=== PATIENT | female | born 1935 | race Caucasian/White ===

== ENCOUNTER 2020-12-14 14:28 | Inpatient (IN) | payer BC ==
[2020-12-14 14:52] VITALS: BMI 33.8
[2020-12-14] MEDS ORDERED: DEXAMETHASONE SOD PHOSPHATE 4 MG/1 ML VIAL IVPUSH ONE (16:15)
[2020-12-14] MEDS ORDERED: DEXAMETHASONE SOD PHOSPHATE 10 MG/1 ML VIAL ONE (17:02)
[2020-12-14 17:54] LABS: BASO % 0.7 % (0-2.0); EOS % 0.1 % (0-4.5); LYMPH % 4.6 % (8-40); MCH 25.7 pg (25.7-33.7); MCHC 32.3 g/dl (32.0-36.0); MEAN CELL VOLUME 79.5 fl (80-96); MEAN PLT VOLUME 9.4 fl (7.5-11.1); MONO % 4.1 % (3.8-10.2); NEUT % 90.5 % (42.8-82.8); PLATELET COUNT 290 K/MM3 (134-434); RBC 4.28 M/mm3 (3.60-5.2); RDW 15.8 % (11.6-15.6); WHITE BLOOD COUNT 16.3 K/mm3 (4.0-10.0)
[2020-12-14] MEDS ORDERED: VANCOMYCIN 1,250 MG in DEXTROSE 5%-WATER - 250 ML IVPB ONE (18:04)
[2020-12-14] MEDS ORDERED: DOXYCYCLINE INJECTION 100 MG in DEXTROSE 5%-WATER - 100 ML IVPB ONE (18:04)
[2020-12-14 18:15] LABS: POTASSIUM 3.8 mmol/L (3.5-5.1)
[2020-12-14 18:17] LABS: BLOOD UREA NITROGEN 72.1 mg/dL (7-18); CALCIUM 8.5 mg/dL (8.5-10.1)
[2020-12-14 18:21] LABS: CREATININE 1.9 mg/dL (0.55-1.3)
[2020-12-14 18:22] LABS: BILIRUBIN,TOTAL 0.5 mg/dL (0.2-1); TOT PROT 6.9 g/dl (6.4-8.2)
[2020-12-14 18:36] LABS: N-TERMINAL BNP 8722.2 pg/ml (5-450)
[2020-12-14] MEDS ORDERED: DEXTROSE 50%-WATER 25 GM/50 ML DISP.SYRIN ONE (18:38)
[2020-12-14] MEDS ORDERED: HEPARIN NA (PORCINE) 5,000 UNITS/ML 1ML VIAL IVPUSH PRN (18:42)
[2020-12-14] MEDS ORDERED: HEPARIN NA (PORCINE) 5,000 UNITS/ML 1ML VIAL IVPUSH ONE (18:43)
[2020-12-14] MEDS ORDERED: ASPIRIN 81 MG CHEWABLE TABLETS PO ONE (18:44)
[2020-12-14] MEDS ORDERED: CLOPIDOGREL BISULFATE 300 MG TABLET PO ONE (18:44)
[2020-12-14] MEDS ORDERED: ATORVASTATIN CA 80 MG TABLET (FP) PO ONE (18:45)
[2020-12-14] MEDS ORDERED: DEXTROSE 50%-WATER - 25 GM/50 ML VIAL IVPUSH ONE (18:46)
[2020-12-14] MEDS ORDERED: FUROSEMIDE 40 MG/4 ML INJECTABLE VIAL IVPUSH ONE (18:49)
[2020-12-14 18:56] LABS: INR 1.03 (0.83-1.09); PROTHROMBIN TIME (PATIENT) 12.5 SEC (9.7-13.0)
[2020-12-14 18:59] LABS: ACTIVATED PTT 27.3 SECONDS (25.2-36.5)
[2020-12-14] MEDS ORDERED: ASPIRIN 81 MG CHEWABLE TABLETS ONE (19:03)
[2020-12-14] MEDS ORDERED: ATORVASTATIN CA 80 MG TABLET (FP) ONE ×2 (19:04→21:59)
[2020-12-14] MEDS ORDERED: CLOPIDOGREL BISULFATE 300 MG TABLET ONE (19:04)
[2020-12-14] MEDS ORDERED: FUROSEMIDE 40 MG/4 ML INJECTABLE VIAL ONE (19:05)
[2020-12-14] MEDS ORDERED: HEPARIN NA (PORCINE) 5,000 UNITS/ML 1ML VIAL ONE (19:06)
[2020-12-14] MEDS ORDERED: ENOXAPARIN NA (PORCINE) 80 MG/0.8 ML DISP.SYRIN SQ SCH (20:00)
[2020-12-14] MEDS: HEPARIN - 25,000 UNIT in SODIUM CHLORIDE 495 ML IV SCH (20:09)
[2020-12-14] MEDS ORDERED: SODIUM CHLORIDE 1,000 ML IV SCH (20:45)
[2020-12-14] MEDS ORDERED: ASCORBIC ACID 500 MG TABLET (FP) ONE (21:58)
[2020-12-14] MEDS ORDERED: ZINC SULFATE 220 MG CAPSULE (FP) ONE (21:59)
[2020-12-14] MEDS: ASCORBIC ACID 500 MG TABLET (FP) PO SCH (22:11)
[2020-12-14] MEDS: ZINC SULFATE 220 MG CAPSULE (FP) PO SCH (22:11)
[2020-12-14] MEDS: ATORVASTATIN CA 80 MG TABLET (FP) PO SCH (22:11)
[2020-12-15 02:34] LABS: URINE APPEARANCE Clear; URINE BILIRUBIN Negative (NEGATIVE); URINE COLOR Yellow; URINE GLUCOSE (UA) Negative (NEGATIVE); URINE KETONE Negative (NEGATIVE); URINE LEUK ESTERASE 3+ (NEGATIVE); URINE NITRITE Negative (NEGATIVE); URINE PROTEIN 2+ (NEGATIVE); URINE UROBILINOGEN 0.2 mg/dL (0.2-1.0)
[2020-12-15] MEDS ORDERED: HEPARIN NA (PORCINE) 5,000 UNITS/ML 1ML VIAL ONE (05:30)
[2020-12-15] MEDS: HEPARIN NA (PORCINE) 5,000 UNITS/ML 1ML VIAL IVPUSH PRN (05:34)
[2020-12-15] MEDS: DOXYCYCLINE INJECTION 100 MG in DEXTROSE 5%-WATER - 100 ML IVPB SCH ×2 (06:13→19:08)
[2020-12-15] MEDS ORDERED: DOXYCYCLINE HYCLATE 100 MG VIAL ONE ×2 (06:15→18:56)
[2020-12-15 08:08] LABS: BASO % 0.2 % (0-2.0); HEMATOCRIT 33.2 % (32.4-45.2); HEMOGLOBIN 10.9 GM/dL (10.7-15.3); LYMPH % 5.1 % (8-40); MCH 26.1 pg (25.7-33.7); MCHC 32.8 g/dl (32.0-36.0); MEAN CELL VOLUME 79.4 fl (80-96); MEAN PLT VOLUME 9.4 fl (7.5-11.1); MONO % 2.1 % (3.8-10.2); NEUT % 92.6 % (42.8-82.8); PLATELET COUNT 258 K/MM3 (134-434); RBC 4.18 M/mm3 (3.60-5.2); RDW 15.4 % (11.6-15.6); WHITE BLOOD COUNT 9.2 K/mm3 (4.0-10.0)
[2020-12-15 09:32] LABS: BLOOD UREA NITROGEN 73.6 mg/dL (7-18); CALCIUM 8.2 mg/dL (8.5-10.1); CREATININE 1.6 mg/dL (0.55-1.3); POTASSIUM 3.7 mmol/L (3.5-5.1)
[2020-12-15] MEDS ORDERED: ASCORBIC ACID 500 MG TABLET (FP) ONE (09:46)
[2020-12-15] MEDS ORDERED: CEFTRIAXONE 1 GM/50 ML BAG ONE (09:46)
[2020-12-15] MEDS ORDERED: DEXAMETHASONE SOD PHOSPHATE 10 MG/1 ML VIAL ONE (09:46)
[2020-12-15] MEDS ORDERED: CHOLECALCIFEROL (VIT D3) 1,000 UNIT (25 MCG) TABLET ONE (09:46)
[2020-12-15] MEDS ORDERED: ZINC SULFATE 220 MG CAPSULE (FP) ONE (09:46)
[2020-12-15] MEDS ORDERED: VANCOMYCIN 1 GM in D5W (PRE-DOCKED) 1,000 MG/250 ML IVPB SCH (10:00)
[2020-12-15] MEDS: CEFTRIAXONE 1 GM in DEXTROSE 5%-WATER - 50 ML IVPB SCH (10:09)
[2020-12-15] MEDS: DEXAMETHASONE SOD PHOSPHATE 4 MG/1 ML VIAL IVPUSH SCH (10:09)
[2020-12-15] MEDS: CHOLECALCIFEROL (VIT D3) 1,000 UNIT (25 MCG) TABLET PO SCH (10:09)
[2020-12-15] MEDS: ZINC SULFATE 220 MG CAPSULE (FP) PO SCH (10:09)
[2020-12-15] MEDS: ASCORBIC ACID 500 MG TABLET (FP) PO SCH (10:09)
[2020-12-15 10:50] LABS: ANISOCYTOSIS 2+; MACROCYTOSIS 0; PLATELET ESTIMATE NORMAL
[2020-12-15] MEDS ORDERED: ASPIRIN 81 MG CHEWABLE TABLETS ONE (11:15)
[2020-12-15] MEDS ORDERED: CLOPIDOGREL BISULFATE 75 MG TABLET (FP) ONE (11:15)
[2020-12-15] MEDS: ASPIRIN 81 MG CHEWABLE TABLETS PO SCH (11:18)
[2020-12-15] MEDS: CLOPIDOGREL BISULFATE 75 MG TABLET (FP) PO SCH (11:19)
[2020-12-15] MEDS ORDERED: INSULIN (LEVEMIR) 100 UNITS/ML UNITS SQ ONE (14:34)
[2020-12-15] MEDS ORDERED: CARVEDILOL 25 MG TABLET (FP) PO ONE (14:40)
[2020-12-15] MEDS ORDERED: cloNIDine HCL 0.1 MG TABLET ONE (16:30)
[2020-12-15] MEDS ORDERED: CARVEDILOL 12.5 MG TABLET (FP) ONE (16:30)
[2020-12-15] MEDS ORDERED: INSULIN SLIDING SCALE (NOVOLOG) 1 VIAL SQ SCH (16:30)
[2020-12-15] MEDS: cloNIDine HCL 0.1 MG TABLET PO SCH (17:19)
[2020-12-15] MEDS: INSULIN SLIDING SCALE (NOVOLOG) 1 VIAL SQ SCH (18:36)
[2020-12-16] MEDS: CARVEDILOL 25 MG TABLET (FP) PO SCH ×3 (02:26→22:21)
[2020-12-16] MEDS: ASCORBIC ACID 500 MG TABLET (FP) PO SCH ×3 (02:26→22:21)
[2020-12-16] MEDS: HEPARIN - 25,000 UNIT in SODIUM CHLORIDE 495 ML IV SCH ×2 (02:26→18:19)
[2020-12-16] MEDS: ATORVASTATIN CA 80 MG TABLET (FP) PO SCH ×2 (02:27→22:21)
[2020-12-16] MEDS: cloNIDine HCL 0.1 MG TABLET PO SCH ×3 (02:27→22:00)
[2020-12-16] MEDS: INSULIN (LEVEMIR) 100 UNITS/ML UNITS SQ SCH ×3 (02:29→22:25)
[2020-12-16] MEDS: INSULIN SLIDING SCALE (NOVOLOG) 1 VIAL SQ SCH ×3 (06:44→17:26)
[2020-12-16] MEDS: DOXYCYCLINE INJECTION 100 MG in DEXTROSE 5%-WATER - 100 ML IVPB SCH ×2 (07:57→17:15)
[2020-12-16 08:39] LABS: BASO % 0.1 % (0-2.0); HEMATOCRIT 30.7 % (32.4-45.2); HEMOGLOBIN 10.2 GM/dL (10.7-15.3); LYMPH % 5.3 % (8-40); MCH 26.3 pg (25.7-33.7); MCHC 33.1 g/dl (32.0-36.0); MEAN CELL VOLUME 79.4 fl (80-96); MEAN PLT VOLUME 8.8 fl (7.5-11.1); MONO % 7.6 % (3.8-10.2); PLATELET COUNT 266 K/MM3 (134-434); RBC 3.87 M/mm3 (3.60-5.2); RDW 15.5 % (11.6-15.6); WHITE BLOOD COUNT 10.3 K/mm3 (4.0-10.0)
[2020-12-16 09:19] LABS: MAGNESIUM 2.6 mg/dL (1.8-2.4)
[2020-12-16] MEDS: ASPIRIN 81 MG CHEWABLE TABLETS PO SCH (09:22)
[2020-12-16] MEDS: PANTOPRAZOLE SODIUM 40 MG VIAL IVPUSH SCH (09:23)
[2020-12-16] MEDS: CLOPIDOGREL BISULFATE 75 MG TABLET (FP) PO SCH (09:23)
[2020-12-16] MEDS: ZINC SULFATE 220 MG CAPSULE (FP) PO SCH (09:23)
[2020-12-16] MEDS: CHOLECALCIFEROL (VIT D3) 1,000 UNIT (25 MCG) TABLET PO SCH (09:23)
[2020-12-16 09:24] LABS: PHOSPHOROUS 2.9 mg/dL (2.5-4.9)
[2020-12-16] MEDS: DEXAMETHASONE SOD PHOSPHATE 4 MG/1 ML VIAL IVPUSH SCH (09:27)
[2020-12-16] MEDS: CEFTRIAXONE 1 GM in DEXTROSE 5%-WATER - 50 ML IVPB SCH (10:44)
[2020-12-16] MEDS: HEPARIN NA (PORCINE) 5,000 UNITS/ML 1ML VIAL IVPUSH PRN (10:45)
[2020-12-16 14:35] LABS: CALCIUM 8.7 mg/dL (8.5-10.1); POTASSIUM 3.8 mmol/L (3.5-5.1)
[2020-12-16 14:39] LABS: BLOOD UREA NITROGEN 57.8 mg/dL (7-18); CREATININE 1.3 mg/dL (0.55-1.3)
[2020-12-16] MEDS ORDERED: INSULIN (LEVEMIR) 100 UNITS/ML UNITS SQ SCH (14:55)
[2020-12-16] MEDS: POLYETHYLENE GLYCOL 3350 119 GM BTL PO SCH (16:06)
[2020-12-16] MEDS: DOCUSATE SODIUM 100 MG CAPSULE (FP) PO SCH ×2 (16:07→22:21)
[2020-12-16 17:58] LABS: BASO % 0.2 % (0-2.0); LYMPH % 3.6 % (8-40); MCH 25.7 pg (25.7-33.7); MCHC 32.3 g/dl (32.0-36.0); MEAN CELL VOLUME 79.7 fl (80-96); MEAN PLT VOLUME 8.9 fl (7.5-11.1); MONO % 3.9 % (3.8-10.2); NEUT % 92.3 % (42.8-82.8); PLATELET COUNT 292 K/MM3 (134-434); RBC 3.89 M/mm3 (3.60-5.2); RDW 15.2 % (11.6-15.6); WHITE BLOOD COUNT 11.7 K/mm3 (4.0-10.0)
[2020-12-16 18:45] LABS: ANISOCYTOSIS 1+; MACROCYTOSIS 0; PLATELET ESTIMATE NORMAL; TARGET CELLS 1+
[2020-12-16 18:48] LABS: ALBUMIN 2.6 g/dl (3.4-5.0); BILIRUBIN,TOTAL 0.3 mg/dL (0.2-1); BLOOD UREA NITROGEN 54.3 mg/dL (7-18); CALCIUM 8.4 mg/dL (8.5-10.1); CREATININE 1.2 mg/dL (0.55-1.3); MAGNESIUM 2.6 mg/dL (1.8-2.4); PHOSPHOROUS 1.8 mg/dL (2.5-4.9); TOT PROT 6.1 g/dl (6.4-8.2)
[2020-12-16] MEDS: SENNOSIDES 8.6MG TABLET (FP) PO SCH (22:22)
[2020-12-17] MEDS: DOXYCYCLINE INJECTION 100 MG in DEXTROSE 5%-WATER - 100 ML IVPB SCH ×2 (06:01→18:05)
[2020-12-17] MEDS: INSULIN (LEVEMIR) 100 UNITS/ML UNITS SQ SCH ×2 (06:07→21:08)
[2020-12-17] MEDS: DOCUSATE SODIUM 100 MG CAPSULE (FP) PO SCH ×3 (06:07→21:05)
[2020-12-17] MEDS: INSULIN SLIDING SCALE (NOVOLOG) 1 VIAL SQ SCH ×3 (06:08→17:03)
[2020-12-17 09:26] LABS: HEMATOCRIT 33.1 % (32.4-45.2); HEMOGLOBIN 10.6 GM/dL (10.7-15.3); MCH 25.6 pg (25.7-33.7); MCHC 32.1 g/dl (32.0-36.0); MEAN CELL VOLUME 79.8 fl (80-96); MEAN PLT VOLUME 8.9 fl (7.5-11.1); PLATELET COUNT 307 K/MM3 (134-434); RBC 4.15 M/mm3 (3.60-5.2); RDW 15.4 % (11.6-15.6); WHITE BLOOD COUNT 14.1 K/mm3 (4.0-10.0)
[2020-12-17 09:31] LABS: BASO % 0.1 % (0-2.0); HEMOGLOBIN 10.5 GM/dL (10.7-15.3); LYMPH % 6.1 % (8-40); MCH 25.4 pg (25.7-33.7); MCHC 31.9 g/dl (32.0-36.0); MEAN CELL VOLUME 79.7 fl (80-96); MEAN PLT VOLUME 8.8 fl (7.5-11.1); MONO % 8.7 % (3.8-10.2); NEUT % 85.1 % (42.8-82.8); PLATELET COUNT 299 K/MM3 (134-434); RBC 4.14 M/mm3 (3.60-5.2); RDW 15.5 % (11.6-15.6); WHITE BLOOD COUNT 14.3 K/mm3 (4.0-10.0)
[2020-12-17] MEDS: CARVEDILOL 25 MG TABLET (FP) PO SCH ×2 (10:12→21:05)
[2020-12-17] MEDS: ASPIRIN 81 MG CHEWABLE TABLETS PO SCH (10:12)
[2020-12-17] MEDS: ASCORBIC ACID 500 MG TABLET (FP) PO SCH ×2 (10:12→21:05)
[2020-12-17] MEDS: CLOPIDOGREL BISULFATE 75 MG TABLET (FP) PO SCH (10:12)
[2020-12-17] MEDS: cloNIDine HCL 0.1 MG TABLET PO SCH ×2 (10:12→21:07)
[2020-12-17 10:13] LABS: POTASSIUM 3.8 mmol/L (3.5-5.1)
[2020-12-17] MEDS: ZINC SULFATE 220 MG CAPSULE (FP) PO SCH (10:13)
[2020-12-17] MEDS: amLODIPine BESYLATE 10 MG TABLET (FP) PO SCH (10:13)
[2020-12-17] MEDS: CHOLECALCIFEROL (VIT D3) 1,000 UNIT (25 MCG) TABLET PO SCH (10:13)
[2020-12-17] MEDS: CEFTRIAXONE 1 GM in DEXTROSE 5%-WATER - 50 ML IVPB SCH (10:14)
[2020-12-17] MEDS: DEXAMETHASONE SOD PHOSPHATE 4 MG/1 ML VIAL IVPUSH SCH (10:14)
[2020-12-17] MEDS: PANTOPRAZOLE SODIUM 40 MG VIAL IVPUSH SCH (10:14)
[2020-12-17 10:15] LABS: CALCIUM 8.9 mg/dL (8.5-10.1)
[2020-12-17] MEDS: SENNOSIDES 8.6MG TABLET (FP) PO SCH ×2 (10:15→21:05)
[2020-12-17 10:16] LABS: ALBUMIN 2.7 g/dl (3.4-5.0); BLOOD UREA NITROGEN 38.6 mg/dL (7-18); MAGNESIUM 2.4 mg/dL (1.8-2.4)
[2020-12-17 10:19] LABS: PHOSPHOROUS 1.9 mg/dL (2.5-4.9)
[2020-12-17 10:21] LABS: BILIRUBIN,TOTAL 0.4 mg/dL (0.2-1); TOT PROT 6.5 g/dl (6.4-8.2)
[2020-12-17] MEDS: POLYETHYLENE GLYCOL 3350 119 GM BTL PO SCH (10:31)
[2020-12-17] MEDS: HEPARIN - 25,000 UNIT in SODIUM CHLORIDE 495 ML IV SCH (19:37)
[2020-12-17] MEDS: ATORVASTATIN CA 80 MG TABLET (FP) PO SCH (21:05)
[2020-12-18] MEDS: DOCUSATE SODIUM 100 MG CAPSULE (FP) PO SCH ×3 (06:24→21:09)
[2020-12-18] MEDS: INSULIN SLIDING SCALE (NOVOLOG) 1 VIAL SQ SCH ×3 (06:24→16:57)
[2020-12-18] MEDS: INSULIN (LEVEMIR) 100 UNITS/ML UNITS SQ SCH ×2 (06:24→21:28)
[2020-12-18 09:03] LABS: BASO % 0.1 % (0-2.0); EOS % 0.1 % (0-4.5); HEMATOCRIT 32.8 % (32.4-45.2); HEMOGLOBIN 10.5 GM/dL (10.7-15.3); LYMPH % 6.7 % (8-40); MCH 25.8 pg (25.7-33.7); MCHC 32.1 g/dl (32.0-36.0); MEAN CELL VOLUME 80.1 fl (80-96); NEUT % 86.1 % (42.8-82.8); PLATELET COUNT 335 K/MM3 (134-434); RBC 4.09 M/mm3 (3.60-5.2); RDW 15.4 % (11.6-15.6); WHITE BLOOD COUNT 18.4 K/mm3 (4.0-10.0)
[2020-12-18] MEDS: ASCORBIC ACID 500 MG TABLET (FP) PO SCH ×2 (10:57→21:03)
[2020-12-18] MEDS: cloNIDine HCL 0.1 MG TABLET PO SCH ×2 (10:57→21:03)
[2020-12-18] MEDS: CLOPIDOGREL BISULFATE 75 MG TABLET (FP) PO SCH (10:57)
[2020-12-18] MEDS: CHOLECALCIFEROL (VIT D3) 1,000 UNIT (25 MCG) TABLET PO SCH (10:57)
[2020-12-18] MEDS: PANTOPRAZOLE SODIUM 40 MG VIAL IVPUSH SCH (10:57)
[2020-12-18] MEDS: CARVEDILOL 25 MG TABLET (FP) PO SCH ×2 (10:57→21:03)
[2020-12-18] MEDS: hydrALAZINE HCL 25 MG TABLET (FP) PO SCH ×2 (10:57→21:02)
[2020-12-18] MEDS: amLODIPine BESYLATE 10 MG TABLET (FP) PO SCH (10:57)
[2020-12-18] MEDS: ZINC SULFATE 220 MG CAPSULE (FP) PO SCH (10:57)
[2020-12-18] MEDS: ASPIRIN 81 MG CHEWABLE TABLETS PO SCH (10:57)
[2020-12-18] MEDS: POLYETHYLENE GLYCOL 3350 119 GM BTL PO SCH (10:58)
[2020-12-18] MEDS: SENNOSIDES 8.6MG TABLET (FP) PO SCH ×2 (10:58→21:09)
[2020-12-18] MEDS: DEXAMETHASONE SOD PHOSPHATE 4 MG/1 ML VIAL IVPUSH SCH (11:00)
[2020-12-18 11:07] LABS: ALBUMIN 2.8 g/dl (3.4-5.0); BILIRUBIN,TOTAL 0.4 mg/dL (0.2-1); BLOOD UREA NITROGEN 31.5 mg/dL (7-18); CALCIUM 8.8 mg/dL (8.5-10.1); MAGNESIUM 2.1 mg/dL (1.8-2.4); PHOSPHOROUS 2.2 mg/dL (2.5-4.9); POTASSIUM 4.1 mmol/L (3.5-5.1); TOT PROT 6.2 g/dl (6.4-8.2)
[2020-12-18] MEDS: HEPARIN - 25,000 UNIT in SODIUM CHLORIDE 495 ML IV SCH (18:48)
[2020-12-18] MEDS: ATORVASTATIN CA 80 MG TABLET (FP) PO SCH (21:02)
[2020-12-18] MEDS ORDERED: ACETAMINOPHEN 325 MG TABLET (FP) PO ONE (22:32)
[2020-12-19] MEDS ORDERED: LIDOCAINE 5% TOPICAL PATCH TP ONE (01:48)
[2020-12-19] MEDS ORDERED: SODIUM CHLORIDE 1,000 ML IV STA ×3 (04:25→04:35)
[2020-12-19 05:18] LABS: ALBUMIN 2.3 g/dl (3.4-5.0); BILIRUBIN,TOTAL 0.3 mg/dL (0.2-1); CALCIUM 7.8 mg/dL (8.5-10.1); CREATININE 1.2 mg/dL (0.55-1.3); INR 1.2 (0.83-1.09); MAGNESIUM 1.9 mg/dL (1.8-2.4); PHOSPHOROUS 2.9 mg/dL (2.5-4.9); POTASSIUM 4.5 mmol/L (3.5-5.1); PROTHROMBIN TIME (PATIENT) 14.5 SEC (9.7-13.0); TOT PROT 4.9 g/dl (6.4-8.2)
[2020-12-19] MEDS: DOCUSATE SODIUM 100 MG CAPSULE (FP) PO SCH ×3 (05:25→21:37)
[2020-12-19 05:45] LABS: HEMATOCRIT 21.3 % (32.4-45.2); MCH 25.9 pg (25.7-33.7); MCHC 32.5 g/dl (32.0-36.0); MEAN CELL VOLUME 79.6 fl (80-96); MEAN PLT VOLUME 9.2 fl (7.5-11.1); PLATELET COUNT 307 K/MM3 (134-434); RBC 2.67 M/mm3 (3.60-5.2); RDW 15.6 % (11.6-15.6); WHITE BLOOD COUNT 21.3 K/mm3 (4.0-10.0)
[2020-12-19 05:49] LABS: HEMOGLOBIN 6.9 GM/dL (10.7-15.3)
[2020-12-19] MEDS: INSULIN (LEVEMIR) 100 UNITS/ML UNITS SQ SCH ×3 (06:29→21:37)
[2020-12-19] MEDS: INSULIN SLIDING SCALE (NOVOLOG) 1 VIAL SQ SCH ×3 (06:30→16:37)
[2020-12-19] MEDS ORDERED: FUROSEMIDE 40 MG/4 ML INJECTABLE VIAL IVPUSH ONE (09:46)
[2020-12-19] MEDS: DEXAMETHASONE SOD PHOSPHATE 4 MG/1 ML VIAL IVPUSH SCH (10:03)
[2020-12-19] MEDS: PANTOPRAZOLE SODIUM 40 MG VIAL IVPUSH SCH (10:03)
[2020-12-19] MEDS: cloNIDine HCL 0.1 MG TABLET PO SCH (10:04)
[2020-12-19] MEDS: CARVEDILOL 25 MG TABLET (FP) PO SCH (10:04)
[2020-12-19] MEDS: CHOLECALCIFEROL (VIT D3) 1,000 UNIT (25 MCG) TABLET PO SCH (10:04)
[2020-12-19] MEDS: ASCORBIC ACID 500 MG TABLET (FP) PO SCH ×2 (10:04→21:38)
[2020-12-19] MEDS: ZINC SULFATE 220 MG CAPSULE (FP) PO SCH (10:04)
[2020-12-19] MEDS: amLODIPine BESYLATE 10 MG TABLET (FP) PO SCH (10:04)
[2020-12-19] MEDS: SENNOSIDES 8.6MG TABLET (FP) PO SCH ×2 (10:05→21:38)
[2020-12-19] MEDS: POLYETHYLENE GLYCOL 3350 119 GM BTL PO SCH (10:05)
[2020-12-19] MEDS: hydrALAZINE HCL 25 MG TABLET (FP) PO SCH (10:06)
[2020-12-19] MEDS ORDERED: FUROSEMIDE 40 MG/4 ML INJECTABLE VIAL IVPUSH SCH (12:00)
[2020-12-19] MEDS ORDERED: LIDOCAINE PATCH REMOVAL MC ONE (14:00)
[2020-12-19 15:01] LABS: HEMATOCRIT 25.4 % (32.4-45.2); HEMOGLOBIN 8.3 GM/dL (10.7-15.3); MCHC 32.8 g/dl (32.0-36.0); MEAN CELL VOLUME 82.3 fl (80-96); MEAN PLT VOLUME 9.1 fl (7.5-11.1); PLATELET COUNT 251 K/MM3 (134-434); RBC 3.09 M/mm3 (3.60-5.2); RDW 15.8 % (11.6-15.6); WHITE BLOOD COUNT 21.7 K/mm3 (4.0-10.0)
[2020-12-19] MEDS: valACYclovir HCL 500 MG TABLET (FP) PO SCH ×2 (15:38→21:38)
[2020-12-19 19:15] LABS: BASO % 0.6 % (0-2.0); HEMATOCRIT 30.3 % (32.4-45.2); HEMOGLOBIN 9.9 GM/dL (10.7-15.3); LYMPH % 6.2 % (8-40); MCH 26.6 pg (25.7-33.7); MCHC 32.8 g/dl (32.0-36.0); MEAN CELL VOLUME 81.3 fl (80-96); MEAN PLT VOLUME 9.1 fl (7.5-11.1); MONO % 4.6 % (3.8-10.2); NEUT % 88.6 % (42.8-82.8); PLATELET COUNT 230 K/MM3 (134-434); RBC 3.73 M/mm3 (3.60-5.2); RDW 15.4 % (11.6-15.6); WHITE BLOOD COUNT 23.6 K/mm3 (4.0-10.0)
[2020-12-19] MEDS: ATORVASTATIN CA 80 MG TABLET (FP) PO SCH (21:38)
[2020-12-20] MEDS: DOCUSATE SODIUM 100 MG CAPSULE (FP) PO SCH ×3 (06:40→22:33)
[2020-12-20] MEDS: INSULIN (LEVEMIR) 100 UNITS/ML UNITS SQ SCH (06:40)
[2020-12-20] MEDS: INSULIN SLIDING SCALE (NOVOLOG) 1 VIAL SQ SCH ×3 (06:41→16:14)
[2020-12-20 08:25] LABS: BASO % 0.3 % (0-2.0); EOS % 0.5 % (0-4.5); HEMATOCRIT 30.2 % (32.4-45.2); HEMOGLOBIN 9.9 GM/dL (10.7-15.3); LYMPH % 7.9 % (8-40); MCH 26.8 pg (25.7-33.7); MEAN CELL VOLUME 81.4 fl (80-96); MEAN PLT VOLUME 8.8 fl (7.5-11.1); MONO % 6.8 % (3.8-10.2); NEUT % 84.5 % (42.8-82.8); PLATELET COUNT 237 K/MM3 (134-434); RDW 16.1 % (11.6-15.6); WHITE BLOOD COUNT 21.4 K/mm3 (4.0-10.0)
[2020-12-20 08:46] LABS: POTASSIUM 3.8 mmol/L (3.5-5.1)
[2020-12-20 08:49] LABS: ALBUMIN 2.5 g/dl (3.4-5.0); BLOOD UREA NITROGEN 29.2 mg/dL (7-18); CALCIUM 8.4 mg/dL (8.5-10.1)
[2020-12-20 08:50] LABS: MAGNESIUM 1.9 mg/dL (1.8-2.4)
[2020-12-20 08:52] LABS: CREATININE 0.9 mg/dL (0.55-1.3); PHOSPHOROUS 3.2 mg/dL (2.5-4.9)
[2020-12-20 08:54] LABS: BILIRUBIN,TOTAL 0.9 mg/dL (0.2-1); TOT PROT 5.2 g/dl (6.4-8.2)
[2020-12-20] MEDS: hydrALAZINE HCL 25 MG TABLET (FP) PO SCH ×2 (10:13→22:32)
[2020-12-20] MEDS: ASCORBIC ACID 500 MG TABLET (FP) PO SCH ×2 (10:13→22:33)
[2020-12-20] MEDS: DEXAMETHASONE SOD PHOSPHATE 4 MG/1 ML VIAL IVPUSH SCH (10:13)
[2020-12-20] MEDS: CHOLECALCIFEROL (VIT D3) 1,000 UNIT (25 MCG) TABLET PO SCH (10:13)
[2020-12-20] MEDS: ZINC SULFATE 220 MG CAPSULE (FP) PO SCH (10:13)
[2020-12-20] MEDS: PANTOPRAZOLE SODIUM 40 MG VIAL IVPUSH SCH (10:13)
[2020-12-20] MEDS: amLODIPine BESYLATE 10 MG TABLET (FP) PO SCH (10:13)
[2020-12-20] MEDS: valACYclovir HCL 500 MG TABLET (FP) PO SCH ×2 (10:13→22:33)
[2020-12-20] MEDS: SENNOSIDES 8.6MG TABLET (FP) PO SCH ×2 (10:31→22:33)
[2020-12-20 11:29] LABS: INR 0.98 (0.83-1.09); PROTHROMBIN TIME (PATIENT) 12.1 SEC (9.7-13.0)
[2020-12-20 11:30] LABS: ANISOCYTOSIS 1+; MACROCYTOSIS 0; PLATELET ESTIMATE NORMAL
[2020-12-20 11:32] LABS: ACTIVATED PTT 23.5 SECONDS (25.2-36.5)
[2020-12-20] MEDS: POLYETHYLENE GLYCOL 3350 119 GM BTL PO SCH (12:27)
[2020-12-20] MEDS ORDERED: INSULIN (LEVEMIR) 100 UNITS/ML UNITS SQ SCH (12:35)
[2020-12-20] MEDS ORDERED: ACETAMINOPHEN 325 MG TABLET (FP) PO PRN (13:06)
[2020-12-20] MEDS: ATORVASTATIN CA 80 MG TABLET (FP) PO SCH (22:32)
[2020-12-21] MEDS: INSULIN SLIDING SCALE (NOVOLOG) 1 VIAL SQ SCH ×3 (06:17→16:46)
[2020-12-21] MEDS: INSULIN (LEVEMIR) 100 UNITS/ML UNITS SQ SCH (06:19)
[2020-12-21] MEDS: DOCUSATE SODIUM 100 MG CAPSULE (FP) PO SCH ×3 (06:20→21:24)
[2020-12-21 09:14] LABS: BASO % 0.2 % (0-2.0); EOS % 1.3 % (0-4.5); HEMATOCRIT 28.1 % (32.4-45.2); HEMOGLOBIN 9.1 GM/dL (10.7-15.3); LYMPH % 6.8 % (8-40); MCH 26.7 pg (25.7-33.7); MCHC 32.5 g/dl (32.0-36.0); MEAN PLT VOLUME 8.9 fl (7.5-11.1); MONO % 7.1 % (3.8-10.2); NEUT % 84.6 % (42.8-82.8); PLATELET COUNT 256 K/MM3 (134-434); RBC 3.42 M/mm3 (3.60-5.2); RDW 16.7 % (11.6-15.6); WHITE BLOOD COUNT 19.1 K/mm3 (4.0-10.0)
[2020-12-21] MEDS: amLODIPine BESYLATE 10 MG TABLET (FP) PO SCH (09:37)
[2020-12-21] MEDS: cloNIDine HCL 0.1 MG TABLET PO SCH ×2 (09:37→21:23)
[2020-12-21] MEDS: ZINC SULFATE 220 MG CAPSULE (FP) PO SCH (09:37)
[2020-12-21] MEDS: PANTOPRAZOLE SODIUM 40 MG VIAL IVPUSH SCH (09:38)
[2020-12-21] MEDS: valACYclovir HCL 500 MG TABLET (FP) PO SCH ×2 (09:38→21:23)
[2020-12-21] MEDS: CARVEDILOL 25 MG TABLET (FP) PO SCH ×2 (09:38→21:23)
[2020-12-21] MEDS: DEXAMETHASONE SOD PHOSPHATE 4 MG/1 ML VIAL IVPUSH SCH (09:38)
[2020-12-21] MEDS: hydrALAZINE HCL 25 MG TABLET (FP) PO SCH ×2 (09:38→21:27)
[2020-12-21] MEDS: ASCORBIC ACID 500 MG TABLET (FP) PO SCH ×2 (09:38→21:24)
[2020-12-21] MEDS: CHOLECALCIFEROL (VIT D3) 1,000 UNIT (25 MCG) TABLET PO SCH (09:38)
[2020-12-21] MEDS: SENNOSIDES 8.6MG TABLET (FP) PO SCH ×2 (09:38→21:24)
[2020-12-21 09:43] LABS: POTASSIUM 4.3 mmol/L (3.5-5.1)
[2020-12-21 10:05] LABS: ALBUMIN 2.5 g/dl (3.4-5.0); BLOOD UREA NITROGEN 20.3 mg/dL (7-18); MAGNESIUM 2.1 mg/dL (1.8-2.4)
[2020-12-21 10:06] LABS: CALCIUM 9.1 mg/dL (8.5-10.1)
[2020-12-21 10:08] LABS: BILIRUBIN,TOTAL 0.8 mg/dL (0.2-1); CREATININE 0.7 mg/dL (0.55-1.3); TOT PROT 5.5 g/dl (6.4-8.2)
[2020-12-21] MEDS: POLYETHYLENE GLYCOL 3350 119 GM BTL PO SCH (10:41)
[2020-12-21] MEDS: ATORVASTATIN CA 80 MG TABLET (FP) PO SCH (21:22)
[2020-12-22] MEDS: DOCUSATE SODIUM 100 MG CAPSULE (FP) PO SCH ×3 (06:30→21:35)
[2020-12-22] MEDS: INSULIN (LEVEMIR) 100 UNITS/ML UNITS SQ SCH (06:31)
[2020-12-22] MEDS: INSULIN SLIDING SCALE (NOVOLOG) 1 VIAL SQ SCH ×3 (06:31→18:09)
[2020-12-22 08:55] LABS: BASO % 0.1 % (0-2.0); EOS % 0.8 % (0-4.5); HEMATOCRIT 25.6 % (32.4-45.2); HEMOGLOBIN 8.5 GM/dL (10.7-15.3); LYMPH % 7.2 % (8-40); MCH 27.6 pg (25.7-33.7); MCHC 33.4 g/dl (32.0-36.0); MEAN CELL VOLUME 82.7 fl (80-96); MEAN PLT VOLUME 8.2 fl (7.5-11.1); MONO % 6.2 % (3.8-10.2); NEUT % 85.7 % (42.8-82.8); PLATELET COUNT 266 K/MM3 (134-434); RBC 3.09 M/mm3 (3.60-5.2); RDW 16.6 % (11.6-15.6); WHITE BLOOD COUNT 15.3 K/mm3 (4.0-10.0)
[2020-12-22 08:57] LABS: POTASSIUM 4.7 mmol/L (3.5-5.1)
[2020-12-22] MEDS: ZINC SULFATE 220 MG CAPSULE (FP) PO SCH (09:06)
[2020-12-22] MEDS: CARVEDILOL 25 MG TABLET (FP) PO SCH ×2 (09:06→21:34)
[2020-12-22] MEDS: cloNIDine HCL 0.1 MG TABLET PO SCH ×2 (09:07→21:34)
[2020-12-22] MEDS: valACYclovir HCL 500 MG TABLET (FP) PO SCH ×2 (09:07→21:34)
[2020-12-22] MEDS: CHOLECALCIFEROL (VIT D3) 1,000 UNIT (25 MCG) TABLET PO SCH (09:07)
[2020-12-22] MEDS: amLODIPine BESYLATE 10 MG TABLET (FP) PO SCH (09:07)
[2020-12-22] MEDS: ASCORBIC ACID 500 MG TABLET (FP) PO SCH ×2 (09:07→21:34)
[2020-12-22 09:08] LABS: CALCIUM 8.8 mg/dL (8.5-10.1)
[2020-12-22] MEDS: POLYETHYLENE GLYCOL 3350 119 GM BTL PO SCH (09:08)
[2020-12-22] MEDS: SENNOSIDES 8.6MG TABLET (FP) PO SCH ×2 (09:08→21:35)
[2020-12-22] MEDS: hydrALAZINE HCL 25 MG TABLET (FP) PO SCH ×2 (09:08→21:35)
[2020-12-22] MEDS: DEXAMETHASONE SOD PHOSPHATE 4 MG/1 ML VIAL IVPUSH SCH (09:08)
[2020-12-22 09:09] LABS: ALBUMIN 2.5 g/dl (3.4-5.0); BLOOD UREA NITROGEN 25.6 mg/dL (7-18); MAGNESIUM 2.2 mg/dL (1.8-2.4)
[2020-12-22] MEDS: PANTOPRAZOLE SODIUM 40 MG VIAL IVPUSH SCH (09:09)
[2020-12-22 09:12] LABS: CREATININE 0.9 mg/dL (0.55-1.3)
[2020-12-22 09:14] LABS: TOT PROT 5.4 g/dl (6.4-8.2)
[2020-12-22] MEDS: VALSARTAN 80 MG TABLET PO SCH (11:55)
[2020-12-22] MEDS: FUROSEMIDE 20 MG TABLET (FP) PO SCH (11:56)
[2020-12-22] MEDS: ATORVASTATIN CA 80 MG TABLET (FP) PO SCH (21:34)
[2020-12-23] MEDS: INSULIN (LEVEMIR) 100 UNITS/ML UNITS SQ SCH (06:53)
[2020-12-23] MEDS: INSULIN SLIDING SCALE (NOVOLOG) 1 VIAL SQ SCH ×3 (06:53→17:01)
[2020-12-23] MEDS: DOCUSATE SODIUM 100 MG CAPSULE (FP) PO SCH ×3 (06:53→21:41)
[2020-12-23] MEDS: PANTOPRAZOLE SODIUM 40 MG VIAL IVPUSH SCH (09:15)
[2020-12-23] MEDS: CARVEDILOL 25 MG TABLET (FP) PO SCH ×2 (09:16→21:37)
[2020-12-23] MEDS: ZINC SULFATE 220 MG CAPSULE (FP) PO SCH (09:16)
[2020-12-23] MEDS: valACYclovir HCL 500 MG TABLET (FP) PO SCH (09:16)
[2020-12-23] MEDS: ASCORBIC ACID 500 MG TABLET (FP) PO SCH (09:16)
[2020-12-23] MEDS: amLODIPine BESYLATE 10 MG TABLET (FP) PO SCH (09:16)
[2020-12-23] MEDS: cloNIDine HCL 0.1 MG TABLET PO SCH ×2 (09:16→21:45)
[2020-12-23] MEDS: POLYETHYLENE GLYCOL 3350 119 GM BTL PO SCH (09:16)
[2020-12-23] MEDS: CHOLECALCIFEROL (VIT D3) 1,000 UNIT (25 MCG) TABLET PO SCH (09:16)
[2020-12-23] MEDS: VALSARTAN 80 MG TABLET PO SCH (09:17)
[2020-12-23] MEDS: hydrALAZINE HCL 25 MG TABLET (FP) PO SCH ×2 (09:17→21:40)
[2020-12-23] MEDS: FUROSEMIDE 20 MG TABLET (FP) PO SCH (09:18)
[2020-12-23] MEDS: SENNOSIDES 8.6MG TABLET (FP) PO SCH ×2 (09:18→21:42)
[2020-12-23 12:21] LABS: BASO % 0.1 % (0-2.0); EOS % 2.1 % (0-4.5); HEMATOCRIT 22.8 % (32.4-45.2); HEMOGLOBIN 7.3 GM/dL (10.7-15.3); LYMPH % 6.8 % (8-40); MCH 26.9 pg (25.7-33.7); MCHC 32.3 g/dl (32.0-36.0); MEAN CELL VOLUME 83.3 fl (80-96); MEAN PLT VOLUME 8.3 fl (7.5-11.1); MONO % 6.3 % (3.8-10.2); NEUT % 84.7 % (42.8-82.8); PLATELET COUNT 210 K/MM3 (134-434); RBC 2.73 M/mm3 (3.60-5.2); RDW 16.5 % (11.6-15.6)
[2020-12-23 17:04] LABS: INR 1.02 (0.83-1.09); PROTHROMBIN TIME (PATIENT) 12.5 SEC (9.7-13.0)
[2020-12-23 17:07] LABS: ACTIVATED PTT 24.6 SECONDS (25.2-36.5)
[2020-12-23] MEDS ORDERED: IRON SUCROSE INJECTION 200 MG in SODIUM CHLORIDE 90 ML IVPB ONE (17:21)
[2020-12-23] MEDS: ATORVASTATIN CA 80 MG TABLET (FP) PO SCH (21:38)
[2020-12-24] MEDS: DOCUSATE SODIUM 100 MG CAPSULE (FP) PO SCH ×3 (06:28→21:58)
[2020-12-24] MEDS: INSULIN (LEVEMIR) 100 UNITS/ML UNITS SQ SCH (06:28)
[2020-12-24] MEDS: INSULIN SLIDING SCALE (NOVOLOG) 1 VIAL SQ SCH ×3 (06:38→17:53)
[2020-12-24 07:48] LABS: BASO % 0.8 % (0-2.0); EOS % 2.2 % (0-4.5); HEMATOCRIT 30.4 % (32.4-45.2); MCH 28.1 pg (25.7-33.7); MEAN CELL VOLUME 85.4 fl (80-96); MEAN PLT VOLUME 8.6 fl (7.5-11.1); MONO % 6.9 % (3.8-10.2); NEUT % 80.1 % (42.8-82.8); PLATELET COUNT 201 K/MM3 (134-434); RBC 3.56 M/mm3 (3.60-5.2); RDW 16.5 % (11.6-15.6); WHITE BLOOD COUNT 11.8 K/mm3 (4.0-10.0)
[2020-12-24 07:56] LABS: POTASSIUM 4.8 mmol/L (3.5-5.1)
[2020-12-24 08:41] LABS: BLOOD UREA NITROGEN 25.3 mg/dL (7-18)
[2020-12-24 08:42] LABS: ALBUMIN 2.6 g/dl (3.4-5.0)
[2020-12-24 08:43] LABS: CALCIUM 8.9 mg/dL (8.5-10.1); CREATININE 0.8 mg/dL (0.55-1.3); MAGNESIUM 1.9 mg/dL (1.8-2.4)
[2020-12-24 08:44] LABS: PHOSPHOROUS 2.9 mg/dL (2.5-4.9)
[2020-12-24 08:45] LABS: BILIRUBIN,TOTAL 1.3 mg/dL (0.2-1); TOT PROT 5.6 g/dl (6.4-8.2)
[2020-12-24] MEDS: VALSARTAN 80 MG TABLET PO SCH (09:41)
[2020-12-24] MEDS: cloNIDine HCL 0.1 MG TABLET PO SCH ×2 (09:41→21:58)
[2020-12-24] MEDS: hydrALAZINE HCL 25 MG TABLET (FP) PO SCH ×2 (09:41→21:58)
[2020-12-24] MEDS: FUROSEMIDE 20 MG TABLET (FP) PO SCH (09:42)
[2020-12-24] MEDS: CARVEDILOL 25 MG TABLET (FP) PO SCH ×2 (09:42→21:58)
[2020-12-24] MEDS: amLODIPine BESYLATE 10 MG TABLET (FP) PO SCH (09:42)
[2020-12-24] MEDS: PANTOPRAZOLE SODIUM 40 MG VIAL IVPUSH SCH (09:43)
[2020-12-24] MEDS: POLYETHYLENE GLYCOL 3350 119 GM BTL PO SCH (09:43)
[2020-12-24] MEDS: SENNOSIDES 8.6MG TABLET (FP) PO SCH ×2 (09:44→21:59)
[2020-12-24] MEDS ORDERED: INSULIN (LEVEMIR) 100 UNITS/ML UNITS SQ SCH (15:27)
[2020-12-24 15:39] VITALS: TEMP 97.7
[2020-12-24] MEDS: ATORVASTATIN CA 80 MG TABLET (FP) PO SCH (21:58)
[2020-12-25] MEDS: INSULIN SLIDING SCALE (NOVOLOG) 1 VIAL SQ SCH ×2 (06:27→12:51)
[2020-12-25] MEDS: DOCUSATE SODIUM 100 MG CAPSULE (FP) PO SCH (06:29)
[2020-12-25 08:54] LABS: BASO % 0.4 % (0-2.0); EOS % 1.4 % (0-4.5); HEMATOCRIT 30.6 % (32.4-45.2); HEMOGLOBIN 10.2 GM/dL (10.7-15.3); LYMPH % 9.2 % (8-40); MCH 28.4 pg (25.7-33.7); MCHC 33.2 g/dl (32.0-36.0); MEAN CELL VOLUME 85.6 fl (80-96); MEAN PLT VOLUME 8.7 fl (7.5-11.1); MONO % 5.8 % (3.8-10.2); NEUT % 83.2 % (42.8-82.8); PLATELET COUNT 201 K/MM3 (134-434); RBC 3.58 M/mm3 (3.60-5.2); RDW 16.7 % (11.6-15.6); WHITE BLOOD COUNT 12.2 K/mm3 (4.0-10.0)
[2020-12-25 09:13] LABS: POTASSIUM 4.4 mmol/L (3.5-5.1)
[2020-12-25 09:16] LABS: BLOOD UREA NITROGEN 22.6 mg/dL (7-18); CALCIUM 8.6 mg/dL (8.5-10.1)
[2020-12-25 09:17] LABS: ALBUMIN 2.4 g/dl (3.4-5.0); MAGNESIUM 1.7 mg/dL (1.8-2.4)
[2020-12-25 09:21] LABS: BILIRUBIN,TOTAL 1.1 mg/dL (0.2-1); TOT PROT 5.4 g/dl (6.4-8.2)
[2020-12-25 09:23] LABS: CREATININE 0.8 mg/dL (0.55-1.3)
[2020-12-25] MEDS: cloNIDine HCL 0.1 MG TABLET PO SCH (09:58)
[2020-12-25] MEDS: SENNOSIDES 8.6MG TABLET (FP) PO SCH (09:58)
[2020-12-25] MEDS: CARVEDILOL 25 MG TABLET (FP) PO SCH (09:58)
[2020-12-25] MEDS: VALSARTAN 80 MG TABLET PO SCH (09:59)
[2020-12-25] MEDS: POLYETHYLENE GLYCOL 3350 119 GM BTL PO SCH (10:00)
[2020-12-25] MEDS: FUROSEMIDE 20 MG TABLET (FP) PO SCH (10:00)
[2020-12-25] MEDS: PANTOPRAZOLE SODIUM 40 MG VIAL IVPUSH SCH (10:01)
[2020-12-25] MEDS: hydrALAZINE HCL 25 MG TABLET (FP) PO SCH (10:01)
[2020-12-25] MEDS: amLODIPine BESYLATE 10 MG TABLET (FP) PO SCH (10:01)
[2020-12-25] MEDS ORDERED: MAGNESIUM OXIDE 400 MG TABLET (FP) PO ONE (12:50)
[2020-12-25 15:12] VITALS: BP 147/49; PULSE 58
== END 2020-12-25 15:53 | disposition home or self-care (01) | DRG 177 ==
LOC: JER 14:28 → JERBED 19:32 → J6WEST-2 12-15 23:01
PROVIDERS: ADMIT Internal Medicine; ATTEND Student in an Organized Health Care Education/Training Program
PROC: 30233N1 Transfusion of Nonautologous Red Blood Cells into Peripheral Vein, Percutaneous Approach (ICD-10-PCS; principal; 2020-12-19)
DX: U07.1 COVID-19 (principal); I21.4 Non-ST elevation (NSTEMI) myocardial infarction; J96.01 Acute respiratory failure with hypoxia; J12.82 Pneumonia due to coronavirus disease 2019; N17.9 Acute kidney failure, unspecified; D62 Acute posthemorrhagic anemia; D68.32 Hemorrhagic disorder due to extrinsic circulating anticoagulants; I50.32 Chronic diastolic (congestive) heart failure; E10.649 Type 1 diabetes mellitus with hypoglycemia without coma; N64.89 Other specified disorders of breast; I25.10 Atherosclerotic heart disease of native coronary artery without angina pectoris; Z95.1 Presence of aortocoronary bypass graft; E03.9 Hypothyroidism, unspecified; D72.829 Elevated white blood cell count, unspecified; E78.5 Hyperlipidemia, unspecified; E66.9 Obesity, unspecified; Z68.33 Body mass index [BMI] 33.0-33.9, adult; I11.0 Hypertensive heart disease with heart failure
CPT/HCPCS: 36415; 36430; 36511; 71045-TC-FY; 71250-TC; 71275-TC; 74176-TC; 80048; 80053; 81003; 82272; 82550; 82553; 82728; 82962; 83540; 83550; 83615; 83735; 83880; 84100; 84466; 84484; 85025; 85027; 85045; 85379; 85610; 85730; 86140; 86769; 86850; 86900; 86901; 86922; 87040; 87804; 87899; 93005; 93010; 94761; 97116-GP; 97162-GP; 99291; C9803; J0735; J1644; J1756; P9038; P9058; U0003